=== PATIENT | female | born 1970 | race Caucasian/White ===

== ENCOUNTER → 2024-03-01 08:00 | Outpatient (REF) | payer BC, SELFPAY | LOC: HWRAD 08:00 | PROVIDERS: ATTENDING PHYSICIAN Nuclear Medicine Nuclear Cardiology; FAMILY PHYSICIAN Physician Assistant Medical | DX: I10 Essential (primary) hypertension (principal); I77.9 Disorder of arteries and arterioles, unspecified | CPT/HCPCS: 93880 ==

== ENCOUNTER → 2024-10-03 07:48 | Outpatient (REF) | payer BC, SELFPAY | LOC: WDC 07:48 | PROVIDERS: ATTENDING PHYSICIAN Physician Assistant Medical | DX: Z12.31 Encounter for screening mammogram for malignant neoplasm of breast (principal) | CPT/HCPCS: 77063; 77067 ==